=== PATIENT | female | born 1950 | race Caucasian/White ===

== ENCOUNTER 2021-10-30 07:11 | Day surgery (SDC) | payer OTHER ==
[2021-10-25 11:04] VITALS: BMI 20.5
[2021-10-30] MEDS ORDERED: CARBACHOL 0.01% INTRA-OCULAR 1.5 ML VIAL ONE (07:22)
[2021-10-30] MEDS ORDERED: EPINEPHrine/PF 1 MG/1 ML (1:1,000) AMPULE ONE (07:22)
[2021-10-30] MEDS ORDERED: TETRACAINE 0.5% OPHTH SOLN 2 ML BOTTLE ONE (07:22)
[2021-10-30] MEDS ORDERED: BSS (NA/CA/MG/K) BALANCED SALT SOLUTION OPHTH SOLN 15 ML BOTTLE ONE (07:22)
[2021-10-30] MEDS ORDERED: NEO/POLYMYX B SULF/DEXAMETH OPHTHALMIC 5ML BOTTLE ONE (07:22)
[2021-10-30] MEDS ORDERED: LIDOCAINE 1% P/F 10 MG/ML VIAL ONE (07:22)
[2021-10-30] MEDS: PHENYLEPHRINE 2.5% OPHTH SOLN 15 ML BOTTLE ONE ×3 (07:45→07:55)
[2021-10-30] MEDS: CYCLOPENTOLATE 2% OPHTH SOLN 2 ML BOTTLE ONE ×3 (07:45→07:55)
[2021-10-30] MEDS: CIPROFLOXACIN 0.3% EYE DROPS 5 ML BOTTLE ONE ×3 (07:45→07:55)
[2021-10-30] MEDS: TROPICAMIDE 1% OPHTH SOLN 15 ML BOTTLE ONE ×3 (07:45→07:55)
[2021-10-30] MEDS ORDERED: MIDAZOLAM HCL 2 MG/2 ML SINGLE DOSE VIAL ONE (08:37)
[2021-10-30 09:08] VITALS: TEMP 98
[2021-10-30 09:24] VITALS: BP 132/73; PULSE 67
== END 2021-10-30 09:24 | disposition home or self-care (01) ==
LOC: FASU 07:11
PROVIDERS: ATTEND Ophthalmology
PROC: 08RK3JZ Replacement of Left Lens with Synthetic Substitute, Percutaneous Approach (ICD-10-PCS; principal; 2021-10-30 08:41)
DX: H26.8 Other specified cataract (principal)

== ENCOUNTER 2021-11-21 07:06 | Day surgery (SDC) | payer OTHER ==
[2021-11-18 13:29] VITALS: BMI 22.6
[2021-11-21] MEDS ORDERED: CARBACHOL 0.01% INTRA-OCULAR 1.5 ML VIAL ONE (07:14)
[2021-11-21] MEDS ORDERED: TETRACAINE 0.5% OPHTH SOLN 2 ML BOTTLE ONE (07:14)
[2021-11-21] MEDS ORDERED: BSS (NA/CA/MG/K) BALANCED SALT SOLUTION OPHTH SOLN 15 ML BOTTLE ONE (07:14)
[2021-11-21] MEDS ORDERED: LIDOCAINE 1% P/F 10 MG/ML VIAL ONE (07:14)
[2021-11-21] MEDS ORDERED: NEO/POLYMYX B SULF/DEXAMETH OPHTHALMIC 5ML BOTTLE ONE (07:14)
[2021-11-21] MEDS: CYCLOPENTOLATE 2% OPHTH SOLN 2 ML BOTTLE ONE ×3 (07:35→07:45)
[2021-11-21] MEDS: TROPICAMIDE 1% OPHTH SOLN 15 ML BOTTLE ONE ×3 (07:35→07:45)
[2021-11-21] MEDS: PHENYLEPHRINE 2.5% OPHTH SOLN 15 ML BOTTLE ONE ×3 (07:35→07:45)
[2021-11-21] MEDS: CIPROFLOXACIN 0.3% EYE DROPS 5 ML BOTTLE ONE ×3 (07:35→07:45)
[2021-11-21] MEDS ORDERED: MIDAZOLAM HCL 2 MG/2 ML SINGLE DOSE VIAL ONE (08:33)
[2021-11-21 09:33] VITALS: TEMP 97.9
[2021-11-21 09:59] VITALS: BP 151/84; PULSE 78
== END 2021-11-21 10:00 | disposition home or self-care (01) ==
LOC: FASU 07:06
PROVIDERS: ATTEND Ophthalmology
PROC: 08RJ3JZ Replacement of Right Lens with Synthetic Substitute, Percutaneous Approach (ICD-10-PCS; principal; 2021-11-21 08:46)
DX: H26.8 Other specified cataract (principal)
CPT/HCPCS: 66984; V2632